=== PATIENT | male | born 1970 | race Caucasian/White ===

== ENCOUNTER 2017-02-14 19:54 | Observation (INO) | payer BC ==
[~2017-02-14] VITALS: Ht 190.5 cm; Wt 104.5 kg
--- NOTE | ~2017-02-14 | HEMODYNAMI ---
PATIENT:SHARDA SCHULER MEDICAL RECORD: [id number] : 74 LOC[facility] [id number] ADMISSION DATE: 02/14/17 Generatedon:02/15/201711:58 Patient name: SHARDA SCHULER Patient #: [id number] SSN: : 1970 Date of study: 02/15/2017 Page: Of Hemodynamic Procedure Report Patient Data Patient Demographics Procedure consent was obtained First Name: SHARDA Gender: Male Last Name: GANGA : 1970 Patient #: [id number] Age: 46 year(s) Race: Unknown Additional ID: [id number] Contact details [address]: [address] [place] [address] State: [place] City: [place] Zip code: [address] Past Medical History Allergies: No known allergies Admission Admission Data Admission Date: 02/14/2017 Admission Time: 21:48 Room #: [facility] Lab Results Lab Result Date: 02/15/2017 Lab Result Time: 9:45 Biochemistry Name Units Result Min Max BUN mg/dl 12 --(-*--)-- 7 18 Creatinine mg/dl 0.9 --(-*--)-- 0.6 1.3 CBC Name Units Result Min Max Hematocrit % 42.9 --(*---)-- 42 54 Hemoglobin g/dl 15.2 --(-*--)-- 13.5 17.5 Procedure Procedure Types Cath Procedure Diagnostic Procedure LHC LH w/Coronaries Miscellaneous Procedures Moderate Sedation up to 15 minutes Procedure Description Procedure Date Procedure Date: 02/15/2017 Procedure Start Time: 11:46 Procedure End Time: 11:54 Procedure Staff Name Function Rich Rubio MD Performing Physician Gio Mcrae RN Nurse Khanh Petty RT Scrub Dalton Varela RT Monitor Procedure Data Cath Procedure Fluoroscopy Diagnostic fluoroscopy Total fluoroscopy Time: 1.4 time: 1.4 min min Diagnostic fluoroscopy Total fluoroscopy dose: 232 dose: 232 mGy mGy Contrast Material Contrast Material Type Amount (ml) Isovue 300 42 Entry Location Entry Primary Successful Side Size Upsize Upsize Entry Closure Watkins ccessful Closure Location (Fr) 1 (Fr) 2 (Fr) Remarks Device Remarks Radial Right 6 Fr Mechanical artery Short Compression Estimated blood loss: 10 ml Diagnostic catheters Device Type Used For End Catheter Placement Diagnostic Terumo 5Fr Procedure Randolph 110cm catheter Procedure Complications No complications Procedure Medications Medication Administration Route Dosage Oxygen NC 2 l/min Heparin Flush Bag added to field 2 bags (1000units/500ml NS) 0.9% NaCl I.V. 100 ml/hr Radial Cocktail added to field 1 syringe (Verapomil 2mg/Nitro 400mcg/Heparin 1500units) Fentanyl I.V. 50 mcg Versed I.V. 0.5 mg Fentanyl I.V. 50 mcg Versed I.V. 1 mg Fentanyl I.V. 50 mcg Fentanyl I.V. 50 mcg Hemodynamics Rest HGB: 15.2 (g/dl) Heart Rate: 67 (bpm) Pressure Samples Time Site Value (mmHg) Purpose Heart Use Rate(bpm) 11:48 LV 43/20,24 Snapshot 81 Snapshots Pre Cath Intra NCS Post Cath Vital Signs Time Heart Resp SPO2 etCO2 MS3abym NIBP (mmHg) Rhythm Pain Sedation Rate (ipm) (%) (mmHg) (mmHg) Status Level (bpm) 11:28:32 72 16 98 0 0 138/86(109) NSR 0 (11) 10(A) , No pain 11:32:32 66 17 96 0 0 133/78(99) NSR 0 (11) 10(A) , No pain 11:36:33 63 16 95 0 0 127/73(90) NSR 0 (11) 10(A) , No pain 11:40:37 62 18 93 0 0 131/72(101) NSR 0 (11) 10(A) , No pain 11:44:45 58 17 95 0 0 134/67(95) NSR 0 (11) 10(A) , No pain 11:48:51 77 16 95 0 0 118/71(90) NSR 0 (11) 10(A) , No pain 11:52:54 73 17 94 0 0 126/75(97) NSR 0 (11) 10(A) , No pain Medications Time Medication Route Dose Verified Delivered Reason Notes Eff ectiveness by by 11:29:12 Oxygen NC 2 l/min Gio Powers Per Thor Mcrae RN physician RN 11:29:23 Heparin Flush added 2 bags Gio Powers used for Bag to Thor Mcrae professor of public administration (1000units/500ml field RN NS) 11:29:34 0.9% NaCl I.V. 100 Gio Gio Per ml/hr Thor Mcrae RN physician RN 11:29:44 Radial Cocktail added 1 Gio Powers used for (Verapomil to syringe Thor Mcrae professor of public administration 2mg/Nitro field RN 400mcg/Heparin 1500units) 11:43:51 Fentanyl I.V. 50 mcg Gio Gio for Thor Mcrae RN sedation RN 11:44:02 Versed I.V. 0.5 mg Gio Gio for Thor Mcrae RN sedation RN 11:47:16 Fentanyl I.V. 50 mcg Gio Gio for Thor Mcrae RN sedation RN 11:47:20 Versed I.V. 1 mg Gio Gio for Thor Mcrae RN sedation RN 11:48:27 Fentanyl I.V. 50 mcg Gio Gio for Thor Mcrae RN sedation RN 11:49:46 Fentanyl I.V. 50 mcg Gio Gio for Thor Mcrae RN sedation social media content manager Log Time Note 11:00:55 Khanh Petty RT(R) sent for patient. Start room use. 11:07:57 Time tracking: Regular hours 11:08:02 Plan of Care:Hemodynamics will remain stable., Cardiac rhythm will remain stable., Comfort level will be maintained., Respiratory function will remain adequate., Patient/ family verbilizes understanding of procedure., Procedure tolerated without complication., Recovers from procedure without complications.. 11:16:35 Patient received from Med II to CCL 1 Alert and oriented. Tansferred to table in Supine position. 11:16:36 Warm blankets applied, and ant hugger turned on for patient comfort. 11:16:37 Correct patient and procedure confirmed by team. 11:16:38 Signed procedure consent form obtained from patient. 11:16:39 ECG and BP/O2 sat monitors applied to patient. 11:16:43 H&P Date Dictated: 02/15/2017 Within 30 days and on chart.. 11:16:52 Pre-procedure instructions explained to patient. 11:16:52 Pre-op teaching completed and patient verbalized understanding. 11:16:54 Family in patients room. 11:16:55 Patient NPO since Midnight. 11:17:04 Patient allergic to No known allergies 11:17:06 Is the patient allergic to Iodine/contrast media? No. 11:17:09 Is patient on blood thinner?No 11:17:10 Patient diabetic? No. 11:17:12 Previous problem with sedation/anesthesia? No ? 11:17:13 Snore? Yes 11:17:14 Sleep apnea? No 11:17:15 Deviated septum? No 11:17:15 Opens mouth fully? Yes 11:17:16 Sticks out tongue? Yes 11:17:17 Airway obstruction? No ? 11:17:19 Dentures? No ? 11:25:54 Vital chart was started 11:25:55 Baseline sample Acquired. 11:25:59 Rhythm: sinus rhythm 11:26:01 Full Disclosure recording started 11:29:12 Oxygen 2 l/min NC was administered by Gio Mcrae RN; Per physician; 11:29:23 Heparin Flush Bag (1000units/500ml NS) 2 bags added to field was administered by Gio Mcrae RN; used for procedure; 11:29:34 0.9% NaCl 100 ml/hr I.V. was administered by Gio Mcrae RN; Per physician; 11:29:44 Radial Cocktail (Verapomil 2mg/Nitro 400mcg/Heparin 1500units) 1 syringe added to field was administered by Gio Mcrae RN; used for procedure; 11:36:30 Modified Demetrius's test Ulnar < 7 seconds 11:36:32 Patient pain scale 0/10 ?. 11:36:37 IV patent on arrival in right antecubital with 0.9% NaCl at [facility]. 11:37:29 Lab Result : BUN 12 mg/dl 11:37:29 Lab Result : Creatinine 0.9 mg/dl 11:37:29 Lab Result : Hemoglobin 15.2 g/dl 11:37:29 Lab Result : Hematocrit 42.9 % 11:37:33 Lab results completed and on chart. 11:37:41 Right Radial & Right Groin area was prepped with chlora-prep and draped in sterile fashion 11:37:42 Alarms reviewed by R. N. 11:37:42 Sharps counted by scrub and verified by R.N. 11:38:04 Use device set Radial Dx 11:38:05 MBrace Wrist Support opened to sterile field. 11:38:06 Acist Manifold opened to sterile field. 11:38:06 Acist Hand Control opened to sterile field. 11:38:06 Tegaderm 4 x 4 opened to sterile field. 11:38:08 Acist Syringe opened to sterile field. 11:38:08 Medline Cath Pack opened to sterile field. 11:38:09 Bag Decanter opened to sterile field. 11:38:09 Terumo 6Fr Slender Glidesheath opened to sterile field. 11:38:09 St Justo 260cm J .035 wire opened to sterile field. 11:43:34 Physician paged 11:43:35 Physician arrived 11:43:36 --------ALL STOP TIME OUT------ 11:43:36 Final Timeout: patient, procedure, and site verified with staff and physician. All members of the team are in agreement. 11:43:37 Right Radial & Right Groin site verified by team. 11:43:41 Physical assessment completed. ASA score P 2 - A patient with mild systemic disease as per Rich Rubio MD. 11:43:45 Sedation plan: IV Moderate Sedation Versed, Fentanyl 11:43:51 Fentanyl 50 mcg I.V. was administered by Gio Mcrae RN; for sedation; 11:44:02 Versed 0.5 mg I.V. was administered by Gio Mcrae RN; for sedation; 11:46:10 Procedure started. 11:46:15 Local anesthetic to right radial artery with Lidocaine 2% by Rich Rubio MD.INITIAL ACCESS ONLY 11:46:23 A 6 Fr Short sheath was inserted into the Right Radial artery 11:47:16 Fentanyl 50 mcg I.V. was administered by Gio Mcrae RN; for sedation; 11:47:20 Versed 1 mg I.V. was administered by Gio Mcrae RN; for sedation; 11:47:46 A Diagnostic Terumo 5Fr Randolph 110cm catheter was advanced over the wire and used for Procedure. 11:48:21 LV gram done using CABRERA 11:48:23 Injector settings: Ml/sec: 5, Volume: 15, 11:48:27 Fentanyl 50 mcg I.V. was administered by Gio Mcrae RN; for sedation; 11:48:32 RCA angiography performed. 11:49:15 Cordis 6FR XB 3.5 guide catheter opened to sterile field. 11:49:25 Catheter removed. unable to cannulate vessel. 11:49:30 6 Fr XBLAD 3.5 guide catheter was inserted over the wire 11:49:46 Fentanyl 50 mcg I.V. was administered by Gio Mcrae RN; for sedation; 11:49:53 IV Extension Set opened to sterile field. 11:50:07 LCA angiography performed. 11:51:39 Terumo TR Band Large opened to sterile field. 11:52:49 Sheath removed intact; hemostasis achieved with Mechanical Compression to the Right Radial artery. 11:52:51 Procedure ended.(Physican Out) 11:53:25 Fluoroscopy time 01.40 minutes. 11:53:28 Fluoroscopy dose: 232 mGy 11:53:28 Flurop Dose total: 232 11:53:32 Contrast amount:Isovue 300 42ml. 11:53:33 Sharps counted by scrub and verified by R.N. 11:53:36 TR band inflated with 12cc of air. 11:53:37 Insertion/operative site no bleeding no hematoma. 11:53:46 Post right radial artery:stable, soft, clean and dry 11:53:47 Post Procedure Pulses reassessed and unchanged 11:53:50 Post-procedure physical assessment completed. ASA score P 2 - A patient with mild systemic disease as per Rich Rubio MD. 11:53:54 Post procedure rhythm: unchanged. 11:53:57 Estimated blood loss: 10 ml 11:53:58 Post procedure instruction explained to patient.Patient verbalizes understanding. 11:53:59 Patient needs reinforcement of post procedure teaching. 11:54:24 Procedure and supply charges have been captured, reviewed, submitted and are correct. 11:54:26 Procedure Complication : No complications 11:54:28 Vital chart was stopped 11:54:30 See physician's report for complete and final results. 11:54:35 Report given to PCU. 11:54:38 Patient transfered to PCU with Stretcher. 11:54:40 Procedure ended. 11:54:40 Full Disclosure recording stopped 11:54:43 End room use (Document Last) Device Usage Item Name Manufacture Quantity Catalog Hospital Part Current Minimal Lot# / Number Charge Number Stock Stock Serial# Code Waldo [facility] 1 140-0250-00 [id number] 90216 [id number] 5 Wrist Vascular Support Dynamics Acist Acist 1 84251 450429 657752 410975 5 Manifold [employer] Inc Acist Hand Acist 1 54743 721580 166764 843213 5 Control Medical [employer] Inc Tegaderm 4 3M 1 1626W 978721 468857 813357 5 x 4 Acist Acist 1 94403 087603 784080 580664 20 Syringe Medical Systems Inc Medline Cardinal 1 [id number] 649955 16786 934535 5 Cath Pack Health Bag Microtek 1 2002S 014197 23369 646774 5 Decanter [employer] Inc. Terumo 6Fr Terumo 1 [id number] 369625 352822 [address] Justo St Justo 1 361737 352093 635662 798414 30 260cm J .035 wire Diagnostic Terumo 1 40-9147 455144 691503 136418 5 Terumo 5Fr Randolph 110cm catheter Cordis 6FR Cardinal 1 [id number] 027640 437766 355206 2 XB 3.5 Health guide catheter IV Hospira 1 95706-37 948507 20049 224328 5 Extension Set Terumo TR Terumo 1 [id number] 001496 511018 518490 40 Band Large Signature Audit [place] Stage Time Signature Unsigned Intra-Procedure 02/15/2017 Dalton Varela 11:58:09 AM RT(R) Signatures Monitor : Dalton Varela RT Signature : Date : Time : [address] [address]
--- NOTE | ~2017-02-14 | OP ---
PATIENT NAME: SHARDA SCHULER MEDICAL RECORD: [id number] :74 LOCATION:D.M2 D.2120 ADMISSION DATE:02/14/17 SURGEON: JUAREZ CUEVAS MD DATE OF OPERATION: 02/15/2017 PROCEDURES: 1. Left heart catheterization. 2. Selective coronary angiography. 3. Left ventriculogram. INDICATION: Angina and coronary artery disease. PROCEDURE IN DETAIL: After informed consent was obtained and after a detailed explanation of the risks, benefits as well as alternative therapies, the patient elected to proceed with angiogram and heart catheterization. The right radial area was prepped and draped in normal sterile fashion. The right radial artery was cannulated via modified Seldinger technique with placement of 5-[place] sheath. All catheters exchanged through this sheath. FINDINGS: Left ventriculogram was performed in standard 30-degree CABRERA view, reveals good cardiac wall motion throughout all segments. Overall ejection fraction estimated at 60%. SELECTIVE CORONARY ANGIOGRAPHY: Left main, left anterior descending, left circumflex, and right coronary artery are all smooth-walled vessels with no angiographic evidence of coronary artery disease. OVERALL IMPRESSION: 1. No angiographic evidence of coronary artery disease. 2. Normal left heart pressures. 3. Normal left ventricular systolic function. Chest pain is noncardiac in etiology. No further cardiac workup needs to be ascertained. TRANSINT:[id number] Voice Confirmation ID: [id number] DOCUMENT ID: [id number] JUAREZ CUEVAS MD CC: [id number] DICTATION DATE: 02/15/17 1155 SLEEVE WHEEL MAKER: 02/15/17 1540 DIS IN 02/15/17 [id number] [place] [address]
--- NOTE | ~2017-02-14 | HP ---
PATIENT: SHARDA SCHULER MEDICAL RECORD: [id number] ACCOUNT: [id number] LOCATION:[address] : 74 ADMISSION DATE: 02/14/17 HISTORY AND PHYSICAL EXAMINATION ADMITTING DIAGNOSES: 1. Chest pain compatible with angina. 2. Family history of coronary artery disease. 3. Hypertension. 4. Hyperlipidemia. 5. Smoking history. HISTORY OF PRESENT ILLNESS: Mr. cShuler presents with chest pain times 1 week that has progressed over this week. A dull aching sensation, very typical for angina. He had multiple episodes yesterday. His troponin is normal. His EKG is normal. He continues to have the episodes of pain. He has a very strong family history along with the other risk factors mentioned above. PHYSICAL EXAMINATION: GENERAL APPEARANCE: Well-nourished, well-developed, appears stated age. Level of distress, comfortable. PSYCHIATRIC: Mental status, alert, normal affect. Orientation, oriented to time, place and person. EYES: Lids and conjunctiva, noninjected. No discharge, no pallor. ENT: Lips, teeth, gums, normal dentition. Oropharynx, no cyanosis, no pallor. NECK: Carotid arteries, bilateral normal upstroke, no bruits, no thrills. JUGULAR VEINS: No jugular venous pressure or distention. CERVICAL LYMPH NODES: Nontender, nonenlarged. THYROID: Not enlarged. Nontender. No nodules. LUNGS: Respiratory effort, unlabored. CHEST: Normal curvature. No thoracic deformity. No chest wall tenderness. Percussion, resonant. Auscultation, clear. No wheezes, no rales, no rhonchi. CARDIOVASCULAR: Precordial exam, nondisplaced. No heaves or pericardial thrills. Rate and rhythm, regular. Heart sounds, normal S1, normal S2. No S3, no gallop, no rub. Systolic murmur, not heard. Diastolic murmur, not heard. EXTREMITIES: No cyanosis, no edema. Peripheral pulses, full and equal in all extremities, except as noted. No bruits appreciated. ABDOMEN: Soft, nondistended. Normal aorta. No bruit. Nontender. No masses. Liver, nontender, no hepatomegaly. Spleen, nontender, no splenomegaly. MUSCULOSKELETAL: No joint tenderness. No joint swelling. No erythema. NEUROLOGICAL: Normal gait, normal strength, normal tone. SKIN: Warm and dry. REVIEW OF SYSTEMS: The patient reports easy bruising but reports no swollen glands. The patient reports no fever, no night sweats, no significant weight gain, no significant weight loss. No significant exercise tolerance. The patient reports no dry eyes, no irritation, no vision change. Patient reports no difficulty hearing and no ear pain. Patient reports no frequent nose bleeds or nose and sinus problems. Patient reports on arm pain on exertion. No shortness of breath while lying down. No history of heart murmur. Patient reports no cough, no wheezing or coughing up blood. Patient reports no abdominal pain, no vomiting. Normal appetite. No diarrhea and not vomiting blood. No nausea and no constipation. Patient reports no incontinence. No difficulty urinating. No hematuria. No increased frequency. Patient reports no muscle aches. No weakness, no arthralgias, no back pain. No swelling of the HISTORY AND PHYSICAL [id number] SCHULER,CHRISTOPHER extremities. Patient reports no abnormal mole, no jaundice, no rashes. Reports no loss of consciousness. No weakness and no numbness. No seizures, dizziness, or headaches. The patient reports no depression, no sleep disturbance, feeling safe in a relationship and no alcohol abuse. Patient reports on fatigue. Reports no runny nose or sinus pressure. No itching, no hives, and no frequent sneezing. OVERALL IMPRESSION: Progressive anginal symptomatology and multiple risk factors, we will proceed with coronary angiography. Further care depends upon the findings of the angiography. TRANSINT:[id number] Voice Confirmation ID: [id number] DOCUMENT ID: [id number] JUAREZ CUEVAS MD CC: [id number] DICTATION DATE: 02/15/17 1032 USED BUILDING MATERIALS YARD WORKER: 02/15/17 1211 ADM IN [facility] [address] [id number]
[2017-02-14 20:29] LABS: BASOPHILS 0.3 % (0-2); EOSINOPHILS 1.6 % (0-7); HEMATOCRIT 43.6 % (42.0-54.0); IMMATURE GRANULOCYTES 0.1 % (0-5); LYMPHOCYTES 38.9 % (15-50); MCH 34.4 pg (26.0-34.0); MCHC 36.7 g/dL (31.0-37.0); MCV 93.8 fL (80.0-100.0); MEAN PLATELET VOLUME 9.4 fL (7.4-10.4); MONOCYTES 7.8 % (2-11); NEUTROPHILS 51.3 % (40-80); PLATELET COUNT 241 10x3/uL (130-400); RBC 4.65 10x6/uL (4.20-6.10); RDW 12.7 % (11.5-14.5); WBC 8.8 10x3/uL (4.8-10.8)
[2017-02-14 20:49] LABS: ALBUMIN 4.2 g/dL (3.4-5.0); ALKALINE PHOSPHATASE 68 U/L (46-116); ALT (SGPT) 48 U/L (10-68); BILIRUBIN - TOTAL 0.36 mg/dL (0.2-1.3); CALC OSMOLALITY 278 mosm/kg (275-300); CALCIUM 9.5 mg/dL (8.5-10.1); CARBON DIOXIDE 27.4 mmol/L (21.0-32.0); CHLORIDE - SERUM 104 mmol/L (98-107); GLUCOSE 95 mg/dL (74-106); POTASSIUM - SERUM 3.9 mmol/L (3.5-5.1); PROTEIN - SERUM 7.6 g/dL (6.4-8.2); SODIUM 140 mmol/L (136-145); UREA NITROGEN 13 mg/dL (7-18); eGFR NON AFRICAN AMERICAN 86 mL/min (90-120)
[2017-02-14 21:01] LABS: CHOL - HDL RATIO 5.2 ratio (2.3-4.9); CHOLESTEROL, TOTAL 192 mg/dL (0-200); CKMB 1.6 U/L (0.0-3.6); CREATINE KINASE 201 UL (21-232); HDL CHOLESTEROL 37 mg/dL (32-96); LDL CHOLESTEROL 111 mg/dL (0-100); TRIGLYCERIDE 220 mg/dL (30-200)
[2017-02-14 21:02] LABS: TROPONIN-I < 0.017 ng/mL (0.000-0.060)
[2017-02-14 22:25] LABS: CREATINE KINASE 180 UL (21-232)
[2017-02-14 22:28] LABS: TROPONIN-I < 0.017 ng/mL (0.000-0.060)
[2017-02-14] MEDS ORDERED: HYZAAR 50-12.51 TAB PO (23:02)
[2017-02-14 23:33] VITALS: BP 120/85; Ht 190.5 cm; Wt 104.5 kg
[2017-02-15] VITALS: BP 129/85
[2017-02-15 04:00] VITALS: BP 133/81
[2017-02-15 05:37] LABS: CKMB 1.4 U/L (0.0-3.6); CREATINE KINASE 168 UL (21-232)
[2017-02-15 05:39] LABS: TROPONIN-I < 0.017 ng/mL (0.000-0.060)
[2017-02-15 08:38] VITALS: BP 123/79
--- NOTE | 2017-02-15 09:19 | NUR ---
RESP UL ON 2L IN. IV PATENT. RFEDI FABIAN. CALL LIGHT IN REACH. WILL CONT. PLAN OF CARE.
--- NOTE | 2017-02-15 09:20 | NUR ---
TELEMETRY SR. AT BS. CALL LIGHT IN REACH. WILL CONT. PLAN OF CARE.
[2017-02-15 10:13] LABS: CKMB 1.1 U/L (0.0-3.6); CREATINE KINASE 170 UL (21-232); TROPONIN-I < 0.017 ng/mL (0.000-0.060)
[2017-02-15 10:44] LABS: BASOPHILS 0.5 % (0-2); HEMATOCRIT 42.9 % (42.0-54.0); HEMOGLOBIN 15.2 g/dL (13.5-17.5); IMMATURE GRANULOCYTES 0.1 % (0-5); MCH 33.9 pg (26.0-34.0); MCHC 35.4 g/dL (31.0-37.0); MCV 95.5 fL (80.0-100.0); MEAN PLATELET VOLUME 10.2 fL (7.4-10.4); MONOCYTES 10.8 % (2-11); NEUTROPHILS 48.6 % (40-80); PLATELET COUNT 249 10x3/uL (130-400); RBC 4.49 10x6/uL (4.20-6.10); RDW 12.7 % (11.5-14.5)
[2017-02-15 10:47] LABS: CALC OSMOLALITY 277 mosm/kg (275-300); CALCIUM 9.1 mg/dL (8.5-10.1); CARBON DIOXIDE 23.7 mmol/L (21.0-32.0); CHLORIDE - SERUM 104 mmol/L (98-107); CREATININE - SERUM 0.9 mg/dL (0.6-1.3); GLUCOSE 104 mg/dL (74-106); POTASSIUM - SERUM 4.3 mmol/L (3.5-5.1); SODIUM 139 mmol/L (136-145); UREA NITROGEN 12 mg/dL (7-18); eGFR NON AFRICAN AMERICAN > 90 mL/min (90-120)
--- NOTE | 2017-02-15 11:15 | NUR ---
PRE-OPS GIVEN. TO ORDER PULLER BY BED.
--- NOTE | 2017-02-15 12:12 | NUR ---
BACK FROM [employer]. VS WNL. RIGHT WRIST STABLE WITH TR BAND INTACT. WILL MONITOR.
[2017-02-15 12:54] VITALS: BP 126/66
--- NOTE | 2017-02-15 14:25 | NUR ---
TR BAND DCD WITHOUT BLEEDING OR HEMATOMA NOTED. WILL MONITOR.
--- NOTE | 2017-02-15 15:25 | NUR ---
IV AND TELEMETRY DCD. DC PLANS GIVEN. UNDERSTANDING VOICED. ESCORTED TO CAR BY W/C.
== END 2017-02-15 15:27 | disposition home or self-care (01) ==
LOC: D.ER 19:54 → OBSVTIME 21:48 → D.M2 21:48
PROVIDERS: Emergency Medicine; ADMIT Internal Medicine Interventional Cardiology
DX: R07.89 Other chest pain (principal); I10 Essential (primary) hypertension; E78.5 Hyperlipidemia, unspecified; Z87.891 Personal history of nicotine dependence

== ENCOUNTER 2018-05-28 19:38 | Emergency (ER) | payer BC ==
[~2018-05-28] VITALS: Ht 190.5 cm; Wt 108.2 kg
[~2018-05-28 19:38] MED LIST: HYZAAR 50-12.51 TAB PO
[2018-05-28 20:06] VITALS: Ht 190.5 cm; Wt 108.2 kg
[2018-05-28] MEDS ORDERED: ZPAK PO (21:57)
[2018-05-28] MEDS ORDERED: DEBROX OTIC15 ML EACH EAR (21:57)
[2018-05-28 22:13] VITALS: BP 149/82
== END 2018-05-28 22:13 | disposition home or self-care (01) ==
LOC: D.ER 19:38
DX: H61.21 Impacted cerumen, right ear (principal); R59.0 Localized enlarged lymph nodes; I10 Essential (primary) hypertension